=== PATIENT | female | born 1985 | race Caucasian/White ===

== ENCOUNTER 2024-05-04 12:45 | Outpatient (CLI) | payer OTHER, SELFPAY ==
--- NOTE | ~2024-05-04 | US_ITS ---
EXAMINATION: US thyroid DATE: 05/04/2024 12:58 INDICATION: Goiter. TECHNIQUE: Multiple ultrasound images of the thyroid were obtained. COMPARISON: None. FINDINGS: The right thyroid lobe measures 5.7 x 2.1 x 1.7 cm. The left thyroid lobe measures 5.1 x 1.9 x 1.8 c m. The thyroid demonstrates heterogeneous echogenicity. Vascularity is normal. In the left thyroid l obe, there is a 4 mm nodule. In the right thyroid lobe, there is a 4 mm macrocalcification. In the ri ght thyroid lobe, there is a 6 mm solid, hypoechoic, wider than tall nodule with smooth margin withou t echogenic foci (TI-RADS TR4). IMPRESSION: 1. Heterogeneous thyroid, likely chronic lymphocytic (Taisha) thyroiditis. 2. Small thyroid nodules, likely not clinically significant. No follow-up is needed. Reviewed, dictated and finalized at location A. R SLAGMAN IMPRESSION: 1. Heterogeneous thyroid, likely chronic lymphocytic (Taisha) thyroiditis. 2. Small thyroid nodules, likely not clinically significant. No follow-up is ne eded.
== END 2024-05-04 12:46 | disposition home or self-care (01) ==
LOC: MICIMG 12:46
PROVIDERS: PCP Nurse Practitioner Family; Visit Provider Internal Medicine
DX: E07.9 Disorder of thyroid, unspecified (principal); E04.1 Nontoxic single thyroid nodule; E66.9 Obesity, unspecified
CPT/HCPCS: 76536

== ENCOUNTER 2024-07-28 06:47 | Outpatient (CLI) | payer OTHER, SELFPAY ==
--- OUTSIDE RECORDS SUMMARY | 2024-07-28 06:50 | XMS_ITS | Clinical Summary ---
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 08/07/2013 Active Active Problems Problem Noted Date Diagnosed Date Hematochezia 12/24/2023 Family History Medical History Relation Comments Diabetes Maternal Grandmother Relation Status Comments Maternal Grandmother Social History Tobacco Use Types Packs/Day Years Used Date Smoking Tobacco: Never Passive Smoke Exposure: Never Smokeless Tobacco: Never Tobacco Cessation:Counseling Given: No Alcohol Use Standard Drinks/Week Comments Never 0 (1 standard drink = 0.6 oz pur e alcohol) PHQ-2 Answer Date Recorded Patient Health Questionnaire-2 Score 0 12/24/2023 Comments No Sex and Gender Information Value Date Recorded Sex Assigned at Not on file Legal Sex Female 7:27 PM CDT Gender Identity Not on file Sexual Orientation Not on file Last Filed Vital Signs Vital Sign Reading Time Taken Comments Blood Pressure 119/63 03/08/2024 10:15 AM CDT Pulse 61 03/08/2024 8:13 AM CDT Temperature 36.1 C (96.9 F) 03/08/2024 8:13 AM CDT Respiratory Rate 18 03/08/2024 10:15 AM CDT Oxygen Saturation 100% 03/08/2024 10:15 AM CDT Inhaled Oxygen Concentration - - Weight 94.3 kg (208 lb) 03/08/2024 8:13 AM CDT Height 162.6 cm (5' 4 ) 03/08/2024 8:13 AM CDT Body Mass Index 35.7 03/08/2024 8:13 AM CDT Plan of Treatment Health Maintenance Due Date Last Done Comments Cervical Cancer Screening Pap Smear (Age 30 to 64) Every 3 Years 1987 Annual Physical 1990 Hepatitis C 2005 Hepatitis B Vaccines (1 of 3 - 19+ 3-dose series) 2006 Cervical Cancer Screening Pap with HPV Testing (Age 30 to 64) Every 5 Years 2017 Cervical Cancer Screening with HPV 2017 COVID-19 Vaccine ( season) 2024 04/02/2021, 03/14/2021, 08/31/2020, Additional history exists Influenza Adult (#1) 2024 PHQ-2 (Physician [place]) 05/10/2024 12/24/2023 PHQ-2 (Physician [place]) 12/23/2024 12/24/2023 DTaP, Tdap and Td Vaccines (2 - Td or Tdap) 01/05/2025 01/05/2015 HPV Vaccines Aged Out No longer eligi ble based on patient's age to complete this topic Meningococcal B Vaccine Aged Out No l onger eligible based on patient's age to complete this topic Meningococcal Vaccine Aged Out No mark joshua eligible based on patient's age to complete this topic Pneumococcal Vaccine: Pediatrics (0 to 5 Years) and At-Risk Patients (6 to 64 Years) Aged Out No longer eligible based on patient's age to complete this topic RSV Immunizations Under 20 Months Aged Out No longer eligible based on patient's age to complete this topic Insurance [facility] Care Teams Gasoline Engine Assembler Relationship Specialty Start Date End Date None, Provider, PCP - General UNKNOWN PHYSICIAN SPECIALTY 12/24/23
--- OUTSIDE RECORDS SUMMARY | 2024-07-28 06:51 | XMS_ITS | Encounter Summary ---
Author Organization [facility] Address [address] [place] [address] Care Team Providers Care Vocational Placement Specialist Name Role Phone Unavailable Primary Care Provider Unavailabl e Prior Encounters Date Type Department Care Team Description 03/10/2022 4:45 PM CDT Office Visit [facility] [address] [place] [address] Jannette Schmidt RDH 03/10/2022 Travel 03/10/2022 4:00 PM CDT Office Visit [facility] [address] [place] [address] Kelle Cooley DDS Last Filed Vital Signs Vital Sign Reading Time Taken Comments Blood Pressure 134/88 03/10/2022 4:11 PM CDT Pulse 88 03/10/2022 4:11 PM CDT Temperature - - Respiratory Rate - - Oxygen Saturation - - Inhaled Oxygen Concentration - - Weight - - Height - - Body Mass Index - - Plan of Treatment Not on file Procedures Procedure Name Priority Date/Time Associated Diagnosis Comments ORAL HYGIENE INSTRUCTIONS Routine 2021 4:45 PM CDT TOPICAL APPLICATION OF FLUORIDE VARNISH Routine 03/10/2022 4:45 PM CDT PROPHYLAXIS - ADULT Routine 03/10/2022 4 :45 PM CDT INTRAORAL PHOTO Routine 03/10/2022 4:00 PM CDT INTRAORAL PHOTO Routine 03/10/2022 4:00 PM CDT COMPREHENSIVE ORAL EVALUATION - NEW OR ESTABLISHED PATIENT Routine 03/10/2022 4:00 PM CDT INTRAORAL PHOTO Routine 03/10/2022 4:00 PM CDT INTRAORAL - COMPREHENSIVE SERIES OF RADIOGRAPHIC IMAGES Routine 03/10/2022 4:00 PM CDT PANORAMIC RADIOGRAPHIC IMAGE Routine 03/10/2022 4:00 PM CDT INTRAORAL PHOTO Routine 03/10/2022 4:00 PM CDT 18 O COMPOSITE FILLING Routine 2 12:00 AM CDT 19 O AMALGAM FILLING Routine 03/10/2022 12:00 AM CDT 14 O AMALGAM FILLING Routine 03/10/2022 12:00 AM CDT 30 ERNST AMALGAM FILLING Routine 03/10/2022 12:00 AM CDT 3 O AMALGAM FILLING Routine 03/10/2022 1 2:00 AM CDT Visit Diagnoses Not on file Insurance [address] [place], [place] [address]
--- OUTSIDE RECORDS SUMMARY | 2024-07-28 06:51 | XMS_ITS | Clinical Summary ---
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 Name Role Phone Unavailable Primary Care Provider Unavailabl e Allergies No known active allergies Medications No known medications Active Problems No known active problems Social History Tobacco Use Types Packs/Day Years Used Date Smoking Tobacco: Never Smokeless Tobacco: Never Tobacco Cessation:Counseling Given: Not Answered Alcohol Use Standard Drinks/Week Comments Yes 2 (1 standard drink = 0.6 oz pur e alcohol) Comments Unknown Sex and Gender Information Value Date Recorded Sex Assigned at Not on file Legal Sex Female 6:11 PM PDT Gender Identity Not on file Sexual Orientation Not on file Last Filed Vital Signs Vital Sign Reading Time Taken Comments Blood Pressure 134/88 03/10/2022 4:11 PM CDT Pulse 88 03/10/2022 4:11 PM CDT Temperature - - Respiratory Rate - - Oxygen Saturation - - Inhaled Oxygen Concentration - - Weight - - Height - - Body Mass Index - - Plan of Treatment Health Maintenance Due Date Last Done Comments Dental Oral Exam 09/08/2022 03/10/2022 Dental Prophylaxis 09/08/2022 03/10/2022 Dental X-Ray: Bitewings 09/08/2022 03/10/2022 Dental X-Ray: Full Mouth 03/11/2025 03/10/2022 Dental X-Ray: Panoramic 03/11/2025 03/10/2022 Meningococcal B Vaccine Aged Out No l onger eligible based on patient's age to complete this topic Procedures Procedure Name Priority Date/Time Associated Diagnosis Comments PROPHYLAXIS - ADULT Routine 03/10/2022 4 :45 PM CDT PANORAMIC RADIOGRAPHIC IMAGE Routine 03/10/2022 4:00 PM CDT INTRAORAL - COMPREHENSIVE SERIES OF RADIOGRAPHIC IMAGES Routine 03/10/2022 4:00 PM CDT COMPREHENSIVE ORAL EVALUATION - NEW OR ESTABLISHED PATIENT Routine 03/10/2022 4:00 PM CDT from Last 3 Months or Most Recently Relevant to Health Maintenance Insurance [facility] PPO
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
--- OUTSIDE RECORDS SUMMARY | 2024-07-28 06:51 | XMS_ITS | Referral Summary ---
Author Organization [facility] [place] Address [address] [place] [id number] Care Team Providers Care Cotton Washer Name Role Phone Maddy Whitman NP Primary Care Provider [phone] Encounters Date Type Department Care Team Description 05/29/2024 7:30 AM PAVING [employer]EMAN Office Visit [facility] Primary Care at [address] [id number] Maddy Whitman NP Annual physical exam (Primary Dx); Acquired hypothyroidism; Class 2 severe obesity due to excess calories with serious comorbidity and body mass index (BMI) of 37.0 to 37.9 in adult (HCC) from Last 3 Months Allergies No known active allergies Medications levothyroxine (Synthroid) 25 mcg tablet daily Active phentermine 37.5 mg capsule Take 1 capsule by mouth in the morning 30 capsule 1 04/04/2024 Active Active Problems Problem Noted Date Diagnosed Date Prediabetes 02/24/2024 Assessment & Plan (02/24/2024 9:07 AM CDT): Patient states previous hemoglobin A1c was 5.9%. She is currently working on weight loss. Will obtain baseline labs today Class 2 severe obesity due t o excess calories with serious comorbidity and body mass index (BMI) of 37.0 to 37.9 in adult 02/24/2024 Assessment & Plan (05/29/2024 8:45 AM PAVING FOREMAN): BMI Follow-up includes: nutrition counseling. Assessment & Plan (02/24/2024 9:12 AM CDT): I discussed the risks and benefits of starting phentermine for weight loss. I discussed the short-term use of 4-6 months of phentermine with patient. I discussed this is an aide to use in conjunction with diet changes and exercise. I discussed possible side effects. I will have patient follow-up in 3 month (patient has been on it before and tolerated well) for recheck on blood pressure and weight patient was agreeable and voiced understanding of plan of care and follow-up. We also briefly discussed that at end of phentermine use we may try transitioning her to Vyvanse for binge eating and some mild depression that she refer to. She finds that she feels better and more energetic on the phentermine, so she may find more benefit with Vyvanse Annual physical exam 02/24/2024 Assessment & Plan (05/29/2024 8:45 AM PAVING FOREMAN): -Recommended: Healthy diet. Avoiding junk food/fast food. -30 minutes of exercise most days of the week. Increase to 45 minutes for weight loss. Health Maintenance reviewed - recommended Tdap. -Influenza vaccine every year Recommend: - Topic Date Due DTaP/Tdap/Td Vaccine (1 - Tdap) Never done Varicella Vaccines (1 of 2 - 13+ 2-dose series) Never done -F/u in 1 year for Annual PE or sooner if needed Assessment & Plan (02/24/2024 9:17 AM CDT): I have reviewed patient's history, family history, current med list and plan of care. Labs ordered today. Discussed relevant follow up testing and specialty follow-up needed. Referrals placed as needed. Drug-induced constipation 02/24/2024 Assessment & Plan (02/24/2024 9:18 AM CDT): Continue MiraLax. Recommended prune lax in addition if she has increased constipation on phentermine. She also is getting the colonoscopy in 2 weeks with GI at [facility] Obstructive sleep apnea syndrome 04/21/2022 09/09/2022 Polycystic ovary syndrome 06/30/20212022 Hyperlipidemia, mixed 11/21/2015 09/09/2022 Assessment & Plan (02/24/2024 9:05 AM CDT): Not currently on medication. She is working on weight loss. I do not have previous labs. We will obtain baseline lipid panel today. Hypothyroidism 11/18/2015 09/09/2022 Assessment & Plan (05/29/2024 8:45 AM PAVING FOREMAN): Is having labs redrawn per her torch solderer. Managed by endocrinology. Not currently on any medication. I asked her to have labs also sent to me along with endocrinology notes. Assessment & Plan (02/24/2024 9:05 AM CDT): History of hypothyroidism. Not currently treated. She is waiting to see endocrinology in April. Resolved Problems Problem Noted Date Diagnosed Date Resolved Date Left hand pain 09/09/2022 02/24/2024 Foot pain 11/18/2015 09/09/2022 02/24/2024 Immunizations Immunization Administration Dates Next Due Influenza, Unspecified 02/24/2024(Deferr ed: Patient Refused),05/10/2023(Deferred: Patient Refused) Social History Tobacco Use Types Packs/Day Years Used Date Smoking Tobacco: Never Smokeless Tobacco: Never Tobacco Cessation:Counseling Given: Not Answered PHQ-2 Answer Date Recorded PHQ-2 Total Score (If total score is 3 or more points, staff should administer the PHQ-9) 0 02/24/2024 Comments Unknown Sex and Gender Information Value Date Recorded Sex Assigned at Not on file Legal Sex Female 8:42 PM P[employer]ING [employer] Gender Identity Not on file Sexual Orientation Not on file Last Filed Vital Signs Vital Sign Reading Time Taken Comments Blood Pressure 112/82 05/29/2024 7:28 AM PAVING FOREMAN Pulse 65 05/29/2024 7:28 AM PAVING [employer]EM[employer] Temperature 36.4 C (97.5 F) 05/29/2024 7:28 AM PAVING FOREMAN Respiratory Rate 16 05/29/2024 7:28 AM PAVING FOREMAN Oxygen Saturation 97% 05/29/2024 7:28 AM PAVING FOREMAN Inhaled Oxygen Concentration - - Weight 98.2 kg (216 lb 9.6 oz) 05/29/2024 7:28 A M [employer]ING [employer]EM[employer] Height 162.6 cm (5' 4 ) 05/29/2024 7:28 AM PAVING [employer]EMAN Body Mass Index 37.18 05/29/2024 7:28 AM PAVING FOREMAN Plan of Treatment Not on file Procedures Procedure Name Priority Date/Time Associated Diagnosis Comments US THYROID Schedule Routine, Read Routine (OP Routine) 05/04/2024 HEPATITIS C ANTIBODY Routine 02/24/2024 9:00 AM CDT Encounter for hepatitis C screening test for low risk patient from Last 3 Months or Most Recently Relevant to Health Maintenance Results * US Thyroid (05/04/2024) Anatomical Region Laterality Modality Head and Neck N/A Ultrasound Historical Provider MD CASTANEDA US PROCEDURES Final R esult * Hepatitis C antibody Blood (02/24/2024 9:00 AM CDT) Hep C Ab Nonreactive Nonreactive Comment: Interpretive Data Nonreactive: Antibodies to HCV not detected. Does NOT exclude the possibility of recent exposure to HCV. Equivocal: Equivocal for HCV antibodies. Supplemental molecular testing will be automatically performed to determine infection status in accordance with current CDC screening recommendations. Reactive: Positive for HCV antibodies. This may represent current or past HCV infection. Supplemental molecular testing will be automatically performed to determine current infection status in accordance with current CDC screening recommendations. Interpretive data was last revised on 2019. Blood 02/24/2024 9:00 AM CDT 02/24/2024 4:33 PM CDT Maddy Whitman NP LAB MICROBIOLOGY - GENERAL OR DERABLES Final Result [facility] [id number] [place] [address] from Last 3 Months or Most Recently Relevant to Health Maintenance Insurance [employer] PL[employer] Care Teams Cotton Washer Relationship Specialty Start Date End Date Maddy Whitman NP PCP - General Family Medicine 02/24/24
--- OUTSIDE RECORDS SUMMARY | 2024-07-28 06:51 | XMS_ITS | Data Portability ---
Author Organization [place] - [facility], Main Office Address [address] [place] [address] Assessment No assessment recorded. Plan of Treatment Reminders Order Date Submit Date Provider Last Modified By Organization Details Last Modified Time Details Appointments None recorded. Lab None recorded. Referral endocrinolo gy referral - Please call patient to schedule an appointment . Thank you 2023 024 [facility] - Endocrinology , [address], [address], [place], [address], 4 08:51:20 Procedures None recorded. Surgeries None recorded. Imaging None recorded. Medication Orders phentermine 37.5 mg tablet 2023 024 [id number] [employer], [address] [place], [address], 4 09:14:38 Patient TargetsNo targets recorded. Patient InstructionsNo instructions recorded. Reason for Referral Endocrinology Referral for H ypothyroidism Please call patient to schedule an appointment. Thank you Referring Physician: Poonam Coats, Family Medicine, Encounter Date: 08/25/2023 Results Created Date Observation Date Name Description Value Unit Range Abnormal Flag Note LastModifiedBy Organization Detail LastModifiedTime 07/15/1907/14/2022 BASIC METAB OLIC PANEL sodium 137 mmol/ L 137-14 5 Not Available [facility] (Lab) [address] [place], [address], 07/14/2022 19:38:47 07/15/19 23 07/14/2022 BASIC METAB OLIC PANEL potassium 4.1 mmol/ L 3.5-5. 1 Not Available [facility] (Lab) [address] [place], [address], 07/14/2022 19:38:47 07/15/19 23 07/14/2022 BASIC METAB OLIC PANEL chloride 104 mmol/ L 98-107 Not Available [facility] (Lab) [address] [place], [address], 07/14/2022 19:38:47 07/15/19 23 07/14/2022 BASIC METAB OLIC PANEL carbon dioxide 25 mmol/ L 22-30 Not Available [facility] (Lab) [address] [place], [address], 07/14/2022 19:38:47 07/15/19 23 07/14/2022 BASIC METAB OLIC PANEL anion gap 12.1 mmol/ L 14-22 low Not Available [facility] (Lab) [address] [place], [address], 07/14/2022 19:38:47 07/15/19 23 07/14/2022 BASIC METAB OLIC PANEL glucose 94 mg/dL 70-99 Not Available [facility] (Lab) [address] [place], [address], 07/14/2022 19:38:47 07/15/19 23 07/14/2022 BASIC METAB OLIC PANEL BUN 11 mg/dL 8-19 Not Available [facility] (Lab) [address] [place], [address], 07/14/2022 19:38:47 07/15/19 23 07/14/2022 BASIC METAB OLIC PANEL creatinine 0.72 mg/dL 0.66-1 .25 Not Available [facility] (Lab) [address] [place], [address], 07/14/2022 19:38:47 07/15/19 23 07/14/2022 BASIC METAB OLIC PANEL GFR >60 Refer ence Range : Sula ge GFR Healt hy Adult : >60 mL/mi n/1.7 3 m2 Chron ic Kidne y Disea se: 15-60 mL/mi n/1.7 3 m2 Kidne y Failu re: <15/m L/min /1.73 m2 www.n iddk. nih.g ov The MDRD study equat ion has not been valid ated in child sebastian <18 years of age; pregn ant women ; the elder ly >85 years of age; or in some racia l or ethni c subgr oups, such as Hispa nics. Outsi de the valid ated rob eters , estim ated GFR is less accur ate, requi ring clini kvng judgm ent on a case- by-ca se basis . Clini kvng inter preta tion for other races and ages must be made by the clini chad. The MDRD study equat ion has not been valid ated for the evalu ation of serum creat inine relat ed to nutri cheli l statu s or medic ation usage . For perso ns <18 years of age, a pedia tric GFR calcu lator is avail able on the [facility] websi te: https ://markus grant.yanet luque.ashwini woodruff/hellen mittalal s/kdo qi/gf r_cal culat or Not Available [facility] (Lab) [address] [place], [address], 07/14/2022 19:38:47 07/15/1907/14/2022 BASIC METAB OLIC PANEL calcium 9.6 mg/dL 8.4-10 .2 Not Available [facility] (Lab) [address] [place], [address], 07/14/2022 19:38:47 07/15/1907/14/2022 LIPID PANEL cholesterol 237 mg/dL 140-19 9 high NIH GABRIEL NSUS RECOM MENDA TION FOR SENAIT STERO L: ADULT CHILD LOW RISK: <200 <170 BORDE RLINE : <200- 239 ----- HIGH RISK: >240 >200 Not Available [facility] (Lab) [address] [place], [address], 07/14/2022 19:38:52 07/15/1907/14/2022 LIPID PANEL triglyceride s 169 mg/dL 0-150 high NIH GABRIEL NSUS REPOR T RECOM MENDA TION FOR TRIGL YCERI CHANA: ADULT CHILD LOW RISK: <150 ----- BODER LINE: 150-1 99 ----- HIGH RISK: >200 ----- Not Available [facility] (Lab) [address] [place], [address], 07/14/2022 19:38:52 07/15/1907/14/2022 LIPID PANEL HDL cholesterol 41 mg/dL 40- Not Available [facility] (Lab) [address] [place], [address], 07/14/2022 19:38:52 07/15/19 23 07/14/2022 LIPID PANEL LDL cholesterol, calculated 162 mg/dL 0-130 high NIH GABRIEL NSUS REPOR T RECOM MENDA TIONS FOR LDL: ADULT CHILD LOW RISK <130 <110 (OPTI MAL LDL) <100 ----- ALBERTO RLINE : 130-1 59 ----- HIGH RISK: >160 >130 A TRIGL YCERI DE RESUL T >400 INVAL IDATE S THE CALCU LATIO N FOR LDL FRACT IONAT ION - THE LDL RESUL T WILL NOT BE REPOR AMMON. Not Available [facility] (Lab) [address] [place], [address], 07/14/2022 19:38:52 07/15/19 23 07/14/2022 HEPAT IC/LI SREEKANTH PANEL alkaline phosphatase 57 U/L 38-126 Not Available [facility] (Lab) [address] [place], [address], 07/14/2022 19:39:12 07/15/19 23 07/14/2022 HEPAT IC/LI SREEKANTH PANEL alanine aminotransfe rase 20 U/L 0-35 Not Available [facility] (Lab) [address] [place], [address], 07/14/2022 19:39:12 07/15/1907/14/2022 HEPAT IC/LI SREEKANTH PANEL aspartate aminotransfe rase 24 U/L 15-37 Not Available [facility] (Lab) [address] [place], [address], 07/14/2022 19:39:12 07/15/19 23 07/14/2022 HEPAT IC/LI SREEKANTH PANEL bilirubin, total 0.50 mg/dL 0.20-1 .30 Not Available [facility] (Lab) [address] [place], [address], 07/14/2022 19:39:12 07/15/19 23 07/14/2022 HEPAT IC/LI SREEKANTH PANEL bilirubin, conjugated (direct) 0.00 mg/dL 0.00-0 .30 Not Available [facility] (Lab) [address] [place], [address], 07/14/2022 19:39:12 07/15/1907/14/2022 HEPAT IC/LI SREEKANTH PANEL biliurubin,u ncong. (indirect) 0.10 mg/dL 0.00-1 .1 Not Available [facility] (Lab) [address] [place], [address], 07/14/2022 19:39:12 07/15/1907/14/2022 HEPAT IC/LI SREEKANTH PANEL total protein 7.5 g/dL 6.3-8. 2 Not Available [facility] (Lab) [address] [place], [address], 07/14/2022 19:39:12 07/15/19 23 07/14/2022 HEPAT IC/LI SREEKANTH PANEL albumin 4.2 g/dL 3.4-5. 0 Not Available [facility] (Lab) [address] [place], [address], 07/14/2022 19:39:12 07/15/19 23 07/14/2022 HEPAT IC/LI SREEKANTH PANEL globulin 3.3 g/dL 2.6-4. 2 Not Available [facility] (Lab) [address] [place], [address], 07/14/2022 19:39:12 07/15/19 23 07/14/2022 HEPAT IC/LI SREEKANTH PANEL A/G ratio 1.3 ratio 1.0-2. 0 Not Available [facility] (Lab) [address] [place], [address], 07/14/2022 19:39:12 07/15/19 23 07/14/2022 T4 FREE free T4 0.82 NG/dL 0.78-2 .19 Not Available [facility] (Lab) [address] [place], [address], 07/14/2022 20:20:12 07/15/19 23 07/14/2022 TSH thyroid-stim ulating hormone 7.890 uIU/m L 0.465- 4.680 high Not Available [facility] (Lab) [address] [place], [address], 07/14/2022 20:21:18 07/15/1907/14/2022 HEMOG LOBIN A1C HA1C 5.4 % 4.0-6. 0 Diabe malcolm Scree luan Crite darrick: <5.7% Consi stent with absen ce of diabe malcolm 5.7-6 .4% Consi stent with incre ased risk for diabe malcolm (pred iabet es) >OR=6 .5% Consi stent with diabe malcolm REFER ENCE: Diabe malcolm Care 2015, 39(Hunter ppl.1 ):s13 -s22 Not Available [facility] (Lab) [address] [place], [address], 07/14/2022 20:41:48 06/30/19 24 07/01/2023 BASIC METAB OLIC PANEL (8) glucose 122 mg/dL 70-99 above high normal Not Available [facility] ([facility]) [address] [place], [address], 07/01/2023 08:28:13 06/30/19 24 07/01/2023 BASIC METAB OLIC PANEL (8) BUN 12 mg/dL 6-20 Not Available [facility] ([facility]) [address] [place], [address], 07/01/2023 08:28:13 06/30/19 24 07/01/2023 BASIC METAB OLIC PANEL (8) creatinine 0.81 mg/dL 0.57-1 .00 Not Available [facility] ([facility]) [address] [place], [address], 07/01/2023 08:28:13 06/30/19 24 07/01/2023 BASIC METAB OLIC PANEL (8) eGFR 97 mL/mi n/1.7 3 >59 Not Available [facility] ([facility]) [address] [place], [address], 07/01/2023 08:28:13 06/30/19 24 07/01/2023 BASIC METAB OLIC PANEL (8) BUN/creatini ne ratio 15 9-23 Not Available [facility] ([facility]) [address] [place], [address], 07/01/2023 08:28:13 06/30/19 24 07/01/2023 BASIC METAB OLIC PANEL (8) sodium 138 mmol/ L 134-14 4 Not Available [facility] ([facility]) [address] [place], [address], 07/01/2023 08:28:13 06/30/19 24 07/01/2023 BASIC METAB OLIC PANEL (8) potassium 4.1 mmol/ L 3.5-5. 2 Not Available [facility] ([facility]) [address] [place], [address], 07/01/2023 08:28:13 06/30/19 24 07/01/2023 BASIC METAB OLIC PANEL (8) chloride 103 mmol/ L 96-106 Not Available [facility] ([facility]) [address] [place], [address], 07/01/2023 08:28:13 06/30/19 24 07/01/2023 BASIC METAB OLIC PANEL (8) carbon dioxide, total 21 mmol/ L 20-29 Not Available [facility] ([facility]) [address] [place], [address], 07/01/2023 08:28:13 06/30/19 24 07/01/2023 BASIC METAB OLIC PANEL (8) calcium 9.5 mg/dL 8.7-10 .2 Not Available [facility] ([facility]) [address] [place], [address], 07/01/2023 08:28:13 06/30/19 24 07/01/2023 HEPAT IC FUNCT ION PANEL (7) protein, total 7.7 g/dL 6.0-8. 5 Not Available [facility] ([facility]) [address] [place], [address], 07/01/2023 08:28:14 06/30/19 24 07/01/2023 HEPAT IC FUNCT ION PANEL (7) albumin 4.6 g/dL 3.9-4. 9 Not Available [facility] ([facility]) [address] [place], [address], 07/01/2023 08:28:14 06/30/19 24 07/01/2023 HEPAT IC FUNCT ION PANEL (7) bilirubin, total 0.2 mg/dL 0.0-1. 2 Not Available [facility] ([facility]) [address] [place], [address], 07/01/2023 08:28:14 06/30/19 24 07/01/2023 HEPAT IC FUNCT ION PANEL (7) bilirubin, direct <0.10 mg/dL 0.00-0 .40 Not Available [facility] ([facility]) [address] [facility] [place], [address], 07/01/2023 08:28:14 06/30/19 24 07/01/2023 HEPAT IC FUNCT ION PANEL (7) alkaline phosphatase 49 IU/L 44-121 Not Available [facility] ([facility]) [address] [facility] [place], [address], 07/01/2023 08:28:14 06/30/19 24 07/01/2023 HEPAT IC FUNCT ION PANEL (7) AST (SGOT) 15 IU/L 0-40 Not Available [facility] ([facility]) [address] [place], [address], 07/01/2023 08:28:14 06/30/19 24 07/01/2023 HEPAT IC FUNCT ION PANEL (7) ALT (SGPT) 17 IU/L 0-32 Not Available [facility] ([facility]) [address] [place], [address], 07/01/2023 08:28:14 06/30/19 24 07/01/2023 LIPID PANEL cholesterol, total 255 mg/dL 100-19 9 above high normal Not Available [facility] ([facility]) [address] [place], [address], 07/01/2023 08:28:15 06/30/19 24 07/01/2023 LIPID PANEL triglyceride s 210 mg/dL 0-149 above high normal Not Available [facility] ([facility]) [address] [place], [address], 07/01/2023 08:28:15 06/30/19 24 07/01/2023 LIPID PANEL HDL cholesterol 39 mg/dL >39 below low normal Not Available [facility] ([facility]) [address] [place], [address], 07/01/2023 08:28:15 06/30/19 24 07/01/2023 LIPID PANEL VLDL cholesterol kvng 40 mg/dL 5-40 Not Available [facility] ([facility]) [address] [place], [address], 07/01/2023 08:28:15 06/30/19 24 07/01/2023 LIPID PANEL LDL chol calc ([facility]) 176 mg/dL 0-99 above high normal Not Available [facility] ([facility]) [address] [place], [address], 07/01/2023 08:28:15 06/30/19 24 07/01/2023 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 6 above high normal Predi abete s: 5.7 - 6.4 Diabe malcolm: >6.4 Glyce himanshu contr ol for adult s with diabe malcolm: <7.0 Not Available [facility] ([facility]) [address] [place], [address], 07/01/2023 08:28:16 06/30/19 24 07/01/2023 TSH TSH 11.600 uIU/m L 0.450- 4.500 above high normal Not Available [facility] ([facility]) [address] [place], [address], 07/01/2023 08:28:17 06/30/19 24 07/01/2023 THYRO XINE (T4) FREE, DIREC T T4,free(dire ct) 0.74 NG/dL 0.82-1 .77 below low normal Not Available [facility] ([facility]) [address] [facility], [place], [address], 07/01/2023 08:28:18 06/30/19 24 06/30/2023 AMBIG ABBRE V BMP8 DEFAU LT ambig abbrev BMP8 default COMMEN T A hand- writt en panel /prof ile was recei calos from your offic e. In accor dance with the [facility] Ambig uous Test Code Polic y dated November 2002, we have compl eted your order by using the close st curre ntly or forme rly recog nized AMA panel . We have fernando cross Basic Metab olic Panel (8), Test Code #32[address]. If this is not the testi ng you wishe d to recei ve on this speci men, pleas e conta ct the [facility] Clien t Inqui ry/Te chnic al Servi stefani Depar tment to yamileth fy the test order . We appre ciate your busin ess. Not Available [facility] ([facility]) [address] [facility], [place], [address], 07/01/2023 08:28:19 06/30/19 24 06/30/2023 AMBIG ABBRE V LP DEFAU LT ambig abbrev LP default COMMEN T A hand- writt en panel /prof ile was recei calos from your offic e. In accor dance with the [facility] Ambig uous Test Code Polic y dated November 2002, we have compl eted your order by using the close st curre ntly or forme rly recog nized AMA panel . We have fernando cross Lipid Panel , Test Code #30[address]. If this is not the testi ng you wishe d to recei ve on this speci men, pleas e conta ct the [facility] Clien t Inqui ry/Te chnic al Servi stefani Depar tment to yamileth fy the test order . We appre ciate your busin ess. Not Available [facility] ([facility]) [address] [facility], [place], [address], 07/01/2023 08:28:19 06/30/19 24 06/30/2023 DELORIS BREWERRE V HFP7 DEFAU LT kalpanapaul manuelrev hfp7 default COMMEN T A hand- writt en panel /prof pho[place] was recei calos from your offic e. In accor dance with the [facility] Deloris asher Test Code Polic y dated November 2002, we have compl eted your order by using the close st curre ntly or forme rly recog nized AMA panel . We have asspaul poped Hepat ic Funct ion Panel (7), Test Code #32[address]. If this is not the testi ng you wishe d to recei ve on this speci men, pleas e conta ct the [facility] Clien t Inqui ry/Te chnic al Servi stefani Depar tment to yamileth fy the test order . We appre ciate your busin ess. Not Available [facility] ([facility]) [address] [facility], [place], [address], 07/01/2023 08:28:20 Result Notes None recorded. Problems Name Problem SNOMED Code Status Onset Date Resolution Date Notes Provider Name and Address Organization Details Recorded Time Polycystic ovary syndrome 687622371 Active 2021 Not Available [facility] 3 00:27:45 Hypothyroidis m 06574572 Active 2021 Not Available [facility] 3 00:27:45 Obstructive sleep apnea syndrome 27916666 Active 2021 Not Available [facility] 3 00:27:45 Bilateral earache 641004797 Active 2022 Poonam Coats MD [address], [place], [address] , [facility] [employer] 3 17:01:13 Prediabetes 776932096 Active 2023 Poonam Coats MD [address], [place], [address] , [place] [employer] 4 07:44:34 Adult health examination Active 2023 Poonam Coats MD [address] [facility] [address], [place], [address] , [employer] 4 07:44:50 Notes:[facility] home sleep study 02/24/22 AHI = 26, supine AHI = 41 [facility] titration sleep study 05/05/22 sleep onset = 61.5 minutes, REM onset = 52.5 minutes, Cantu & Donn small Shay nasal mask @ 9 cmH2O Medical History: Early REM onset Obesity with mod OSAHS, AHI = 26, 02/24/22, on CPAP c/o IVRC Hypothyroidism Mixed hyperlipidemia Prediabetes PCOS Problem Notes None recorded. Medical Equipment None Reported. Allergies No known drug allergies Medications Name Sig Start Date Stop Date Status Note LastModified by Organization Details LastModified Time ofloxacin 0.3 % eye drops 06/30 completed Not Available Not Available Not Available prednisone 20 mg tablet TAKE 2 TABLETS BY MOUTH EVERY DAY FOR 5 DAYS 08/24 completed Not Available Not Available Not Available phentermine 37.5 mg tablet TAKE 1 TABLET BY MOUTH ONCE DAILY 2023 active Not Available Not Available Not Avai lable prednisolone acetate 1 % eye drops,suspen patricia 06/30 completed Not Available Not Available Not Available metformin ER 500 mg tablet,exten ded release 24 hr TAKE 1 TABLET BY MOUTH EVERY DAY 01/28 completed Not Available Not Available Not Available Vitals Date Recorded Body height Provider Name an d Address Organization Details Last Updated DateTime 07/14/2022 162.56 cm Claritza Cervantes CMA [employer] 07/14/2022 09:46:34 Date Recorded Body height Body mass index (BMI) Body weight Body temperature Heart rate Oxygen saturation Oxygen saturation in Arterial blood by Pulse oximetry Systolic blood pressure Diastolic blood pressure Provider Name and Address Organization Details Last Updated DateTime 3 162.56 cm 38.1 kg/m2 802760. 51 g 97.5 [degF] 81 /min 98 % 98 % 128 mm[Hg] 86 mm[Hg] Natalia Prasad MA [employer] 3 16:49:16 Date Recorded Body height Body mass index (BMI) Body weight Body temperature Heart rate Oxygen saturation Oxygen saturation in Arterial blood by Pulse oximetry Systolic blood pressure Diastolic blood pressure Provider Name and Address Organization Details Last Updated DateTime 3 162.56 cm 37.9 kg/m2 456111. 91 g 97.8 [degF] 76 /min 99 % 99 % 132 mm[Hg] 84 mm[Hg] Estefania Mayes RN [facility] [employer] 3 12:28:58 Date Recorded Body height Provider Name an d Address Organization Details Last Updated DateTime 06/30/2023 162.56 cm Mesha Castano LPN [facility] [employer] 06/30/2023 09:00:49 Date Recorded Body height Body mass index (BMI) Body weight Body temperature Heart rate Oxygen saturation Oxygen saturation in Arterial blood by Pulse oximetry Systolic blood pressure Diastolic blood pressure Provider Name and Address Organization Details Last Updated DateTime 4 162.56 cm 38.8 kg/m2 529041. 88 g 98 [degF] 71 /min 97 % 97 % 134 mm[Hg] 82 mm[Hg] Estefania Mayes RN [facility] [employer] 4 08:52:40 Social History Question Answer Notes LastModified by Organizat ion Details LastModified Time Tobacco Smoking Status Never Smoker Not Available [facility] 07/09/2022 00:26:24 What Is Your Level Of Alcohol Consumption? Occasional [email or web address] Information not available 07/28/2022 What Is Your Level Of Caffeine Consumption? Heavy [email or web address] Information not available 07/28/2022 What Type Of Diet Are You Following? REGULAR [email or web address] Information not available 07/28/2022 What Was The Date Of Your Most Recent Tobacco Screening? 06/30/2021 [id number] Information not available 07/09/2022 Do You Use Any Illicit Or Recreational Drugs? No [email or web address] Information not available 07/28/2022 Do You Have Any Dietary Restrictions? No Information not available 07/28/2022 Sex: Female Functional Status Question Answer Note LastModified by Organization D etails LastModified Time What is your exercise level? None [email or web address] Information not available 07/28/2022 Mental Status None recorded. Family History Relationship Description Onset Age of this Age Resolved Age Notes LastModified by Organization Details LastModified Time Maternal Grandmother Prediabetes [id number] 0 [id number] Not available 07/09/2022 00:26:35 Maternal Grandmother Malignant tumor of ovary [id number] Not available 07/09/2022 00:26:35 Mother Hypothyroidi sm [id number] Not available 07/09/2022 00:26:35 Mother Bilateral cataracts [id number].068 [id number] Not available 07/09/2022 00:26:35 Mother Retinal detachment [id number] Not available 07/09/2022 00:26:35 Medical History No medical history recorded. Gynecological History Statement/Question Response STIs/STDs N Date of LMP 04/07/2022 Breast Problems no Discharge no Obstetrics History GPAL:G 0 P 0 0 0 0 Immunizations Vaccine Type Date Status Note Provider Nam e and Address Organization Details Recorded Time COVID-19, mRNA, LNP-S, PF, 30 mcg/0.3 mL dose 04/02/2021 completed Not Available [facility] 3 00:28:47 COVID-19, mRNA, LNP-S, PF, 30 mcg/0.3 mL dose 08/31/2020 completed Not Available [facility] 3 00:28:47 COVID-19, mRNA, LNP-S, PF, 30 mcg/0.3 mL dose 07/31/2020 completed Not Available [facility] 3 00:28:47 Past Encounters Encounter ID Performer Location Encounter Start Date Encounter Closed Date Diagnosis/Indication Diagnosis SNOMED-CT Code Diagnosis ICD10 Code Diagnosis Note [id number] [facility] [place] [address] [facility] [address] [place] [address] 06/30/2021 00:00:00 07/06/2021 22:37:22 [id number] [facility] [place] [address] [facility] [address] [place] [address] 07/08/2021 00:00:00 07/08/2021 09:30:34 [id number] [facility] [place] [address] [place] [address] 07/28/2021 00:00:00 07/28/2021 17:21:37 [id number] [facility] [place] [address] [place] [address] 01/23/2022 00:00:00 01/23/2022 09:18:17 [id number] [facility] [place] [address] [place] [address] 01/28/2022 00:00:00 02/04/2022 18:26:26 [id number] [facility] [place] [address] [place] [address] 04/21/2022 00:00:00 04/21/2022 15:51:15 [id number] Poonam Coats MD [facility] [place] [address] [place] [address] 07/14/2022 09:07:08 07/14/2022 09:53:15 [id number] Poonam Coats MD [facility] [place] [address] [place] [address] 07/28/2022 16:42:26 07/28/2022 17:45:20 [id number] Poonam Coats MD [facility] [place] [address] [place] [address] 01/21/2023 12:20:44 01/21/2023 13:27:03 Dietary management surveillance 941281051 Z71.3 BMI 37.9Comorb idities include ZHANE, PCOSExcell ent candidate for bariatric surgery [id number] Poonam Coats MD [facility] [place] [address] [place] [address] 06/30/2023 08:57:51 06/30/2023 09:14:02 [id number] Poonam Coats MD [facility] [place] [address] [place] [address] 08/25/2023 08:44:13 08/25/2023 09:15:04 Dietary management surveillance 857628230 Z71.3 BMI 37.9Comorb idities include ZHANE, PCOSExcell ent candidate for bariatric surgery 08/25/23: insurance denied bariatric surgeryno coverage for wegovy or zepboundtr ial of phentermin e Adult heal th examination [id number] Z00.00 E78.5 Z79.899 Mammogram age 42Pap smear up to date with gynecology Flu vaccine yearlycolo n cancer screen age 47 Hypothyroidism 36297093 E03.9 TSH is 11+has been on levothyrox ine in the past but did not tolerate it wellendocr inology referral given Polycystic ovary syndrome 059190361 E28.2 Health Concerns Section Related Observation LastModified by Organization Detai ls LastModified Time None Recorded Concern Status LastModified by Organization Details LastModified Time None Recorded Advance Directives Directive None Recorded Payers Encounter Date Sequence Insurance Name Policy Number Policy Nieto Covered Member ID Nieto Member ID Guarantor Name 07/14/[address] [facility] ([facility]) [id number] Roly Macias [id number] Gabriele Macias 07/28/[address] [facility] ([facility]) [id number] Roly Macias [id number] Gabriele Macias 01/21/[address] [facility] ([facility]) [id number] Roly Macias [id number] Gabriele Macias 06/30/[address] [facility] [id number] Roly Macias [id number] Gabriele Macias 08/25/[address] [place] [address] [id number] Roly Macias [id number] Gabriele Macias Notes Date Note Type Note Provider Name and Address Organization Details Recorded Time 01/21/2023 text/html Here to discuss possible bariatric surgery. She has comorbidities including ZHANE, PCOS. She has made lifestyle changes without significant change in weight. No chest pain, no sob. Poonam Coats MD [address] [place] [facility], [place], [address], [facility] [employer] 02/05/2023 10:27:37 08/25/2023 text/html here for wellnes s exam. No chest pain or sob Poonam Coats MD [address], [place], [address], [place] [facility] 09/26/2023 17:12:24 OBGyn Episode No OBEpisode recorded.
--- OUTSIDE RECORDS SUMMARY | 2024-07-28 06:51 | XMS_ITS | Clinical Summary ---
Author Organization [facility] Address [address] [place] [address] Care Team Providers Care Drilling Contractor Name Role Phone Maddy Whitman NP Primary Care Provider [phone] Allergies No known active allergies Medications levothyroxine [...] 02/24/2024 Assessment & Plan (05/29/2024 8:45 AM SALES DEPARTMENT SUPERVISOR): BMI Follow-up includes: nutrition counseling. Assessment & [...] 02/24/2024 Assessment & Plan (05/29/2024 8:45 AM SALES DEPARTMENT SUPERVISOR): -Recommended: Healthy diet. Avoiding junk food/fast food. [...] colonoscopy in 2 weeks with GI at [facility] Obstructive sleep apnea syndrome 04/21/2022 09/09/2022 Polycystic ovary syndrome 06/30/20212022 Hyperlipidemia, mixed 11/21/2015 09/09/2022 Assessment & Plan (02/24/2024 9:05 AM CDT): Not currently on medication. She is working on weight loss. I do not have previous labs. We will obtain baseline lipid panel today. Hypothyroidism 11/18/2015 09/09/2022 Assessment & Plan (05/29/2024 8:45 AM SALES DEPARTMENT SUPERVISOR): Is having labs redrawn per her conformal pad former. Managed by endocrinology. Not currently on any medication. I asked her to have labs also sent to me along with endocrinology notes. Assessment & Plan (02/24/2024 9:05 AM CDT): History of hypothyroidism. Not currently treated. She is waiting to see endocrinology in April. Resolved Problems Problem Noted Date Diagnosed Date Resolved Date Left hand pain 09/09/2022 02/24/2024 Foot pain 11/18/2015 09/09/2022 02/24/2024 Encounters Date Type Department Care Team Description 05/29/2024 7:30 AM SALES DEPARTMENT SUPERVISOR Office Visit [facility] at [address] [address] Maddy Whitman NP Annual physical exam (Primary Dx); Acquired hypothyroidism; Class 2 severe obesity due to excess calories with serious comorbidity and body mass index (BMI) of 37.0 to 37.9 in adult (HCC) from Last 3 Months Immunizations Immunization Administration Dates Next Due Influenza, [...] on file Legal Sex Female 8:42 PM SALES DEPARTMENT SUPERVISOR Gender Identity Not on file Sexual Orientation Not on file Obstetrics History Last Filed Vital Signs Vital Sign Reading Time Taken Comments Blood Pressure 112/82 05/29/2024 7:28 AM SALES DEPARTMENT SUPERVISOR Pulse 65 05/29/2024 7:28 AM SALES DEPARTMENT SUPERVISOR Temperature 36.4 C (97.5 F) 05/29/2024 7:28 AM SALES DEPARTMENT SUPERVISOR Respiratory Rate 16 05/29/2024 7:28 AM SALES DEPARTMENT SUPERVISOR Oxygen Saturation 97% 05/29/2024 7:28 AM SALES DEPARTMENT SUPERVISOR Inhaled Oxygen Concentration - - Weight 98.2 kg (216 lb 9.6 oz) 05/29/2024 7:28 A M SALES DEPARTMENT SUPERVISOR Height 162.6 cm (5' 4 ) 05/29/2024 7:28 AM SALES DEPARTMENT SUPERVISOR Body Mass Index 37.18 05/29/2024 7:28 AM SALES DEPARTMENT SUPERVISOR Plan of Treatment Health Maintenance Due Date Last Done Comments Cervical Cancer Screening 1987 DTaP/Tdap/Td Vaccine (1 - Tdap) 1998 Varicella Vaccines (1 of 2 - 13+ 2-dose series) 2000 Hepatitis B Screening 2005 Covid-19 Vaccine ( - season) 2024 04/02/2021, 03/14/2021, 08/31/2020, Additional history exists Influenza Vaccine (#1) 2024 Postp oned from 01/09/2024 (Patient declined, but will receive in the future) Depression Screening 02/23/2025 02/24/2024 Regular Well Visit/Exam 18-64 05/29/2025 05/29/2024 Hepatitis C Screening Completed 02/24/2024 HPV Vaccines Aged Out No longer eligi ble based on patient's age to complete this topic Pneumococcal vaccine <65 Aged Out No longer eligible based on [...] Laterality Modality Head and Neck N/A Ultrasound us Historical Provider MD CASTANEDA US PROCEDURES Final [...] MICROBIOLOGY - GENERAL OR DERABLES Final Result Performing Organization Address City/State[facility] [place] Phone Number [place] [address] Department [place] [address] from Last 3 Months or Most Recently Relevant to Health Maintenance Insurance [facility] CHOICE PLUS [facility] CHOICE PLUS Member Subscriber Plan / Payer (Ef fective 2022-Present) Name:Gabriele Macias Relation to Subscriber:Self Name:Gabriele Macias Payer ID:[id number] (NAIC) Type:[facility] HMO/PPO Address: [address] CHOICE PLUS Care Teams Drilling Contractor Relationship Specialty Start Date End Date Maddy Whitman NP PCP - General Family Medicine 02/24/24
[2024-07-28 08:11] LABS: Cortisol Baseline 9.59 ug/dL
== END 2024-07-28 06:48 | disposition home or self-care (01) ==
LOC: ANHLAB 06:49
PROVIDERS: PCP Nurse Practitioner Family; Visit Provider Internal Medicine
DX: E78.5 Hyperlipidemia, unspecified (principal); E03.9 Hypothyroidism, unspecified; E28.2 Polycystic ovarian syndrome; K21.9 Gastro-esophageal reflux disease without esophagitis; R79.89 Other specified abnormal findings of blood chemistry; E66.9 Obesity, unspecified
CPT/HCPCS: 36415; 82533; 96372; J0834